=== PATIENT | female | born 1945 | race Caucasian/White ===

== ENCOUNTER 2024-02-09 17:30 | Emergency (ER) | payer SELFPAY ==
[2024-02-09 17:38] VITALS: BP 115/68; PULSE 78; RESP 20; TEMP 98.2; BMI 30.9
[2024-02-09] MEDS ORDERED: LIDOCAINE 5% TOPICAL PATCH ONE (18:38)
[2024-02-09] MEDS ORDERED: traMADol HCL 50 MG TABLET ONE (18:38)
[2024-02-09] MEDS: traMADol HCL 50 MG TABLET PO ONE (18:55)
[2024-02-09] MEDS: LIDOCAINE 5% TOPICAL PATCH TP ONE (18:55)
[2024-02-09] MEDS ORDERED: ACETAMINOPHEN 325 MG TABLET (FP) ONE (18:57)
[2024-02-09] MEDS: ACETAMINOPHEN 325 MG TABLET (FP) PO ONE (18:59)
[2024-02-09] MEDS ORDERED: LIDOCAINE PATCH REMOVAL MC SCH (22:00)
== END 2024-02-09 19:00 | disposition home or self-care (01) ==
LOC: FER 17:30
DX: M54.9 Dorsalgia, unspecified (principal)
CPT/HCPCS: 99283-25